=== PATIENT | male | born 1945 | race Caucasian/White ===

== ENCOUNTER 2017-02-17 11:58 | Inpatient (IN) | payer MEDICARE ==
[2017-02-17] VITALS (22 sets, daily range): BP systolic 90–126; BP diastolic 51–78; PULSE 53–119; RESP 20–35; TEMP 97.8–97.9; O2SAT 58–100
[~2017-02-17] VITALS: Ht 162.6 cm; Wt 48.7 kg
[2017-02-17] MEDS ORDERED: SODIUM CHLORIDE 0.9% FLUSH 10 ML FLUSH IVF PRN (12:15)
[2017-02-17] MEDS ORDERED: methylPREDNISolone SOD SUCC 125 MG/2 ML VIAL IV PUSH ONE (12:15)
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
[2017-02-17] MEDS ORDERED: SYMB160A INH (12:34)
[2017-02-17 12:41] LABS: BLOOD GAS VENOUS BASE EXCESS 9.6 mmol/L (-2-2); BLOOD GAS VENOUS HCO3 37 mmol/L (22-26); BLOOD GAS VENOUS O2 CONTENT 12.9 Vol % (9.0-17.0); BLOOD GAS VENOUS O2 HGB SAT 64 % (70-76); BLOOD GAS VENOUS PCO2 93 mmHg (44-48); BLOOD GAS VENOUS PO2 46 mmHg (35-40); BLOOD GAS VENOUS pH 7.23 (7.360-7.400); TEMP CORR TO 98.6
[2017-02-17 12:42] LABS: CRITICAL VALUE YES; DRAW SITE LINE; FIO2 100 %; LITER FLOW 15 L/M; OXYGEN DEVICE NRB MASK; STAT YES
[2017-02-17 12:48] LABS: AUTOMATED NEUTROPHIL # 6.7 TH/MM3 (1.8-7.7); CHLORIDE 99 MEQ/L (98-107); EOSINOPHIL % 0.1 % (0.0-4.0); HEMO FLAGS DIFF FINAL; LYMPH % 6.1 % (9.0-44.0); LYMPHOCYTE # 0.6 TH/MM3 (1.0-4.8); MEAN CELL VOLUME 90.6 FL (80.0-100.0); MEAN CORPUSCULAR HEMOGLOBIN 29.8 PG (27.0-34.0); MEAN CORPUSCULAR HGB CONC 32.9 % (32.0-36.0); MONO % 19.9 % (0.0-8.0); NEUT % 73.9 % (16.0-70.0); PLATELET COUNT 318 TH/MM3 (150-450); POTASSIUM 4.1 MEQ/L (3.5-5.1); RED BLOOD COUNT 4.63 MIL/MM3 (4.50-5.90); RED CELL DISTRIBUTION WIDTH 13.4 % (11.6-17.2); SODIUM (NA) 142 MEQ/L (136-145); WHITE BLOOD COUNT 9.1 TH/MM3 (4.0-11.0)
[2017-02-17 12:52] LABS: ANION GAP 6 MEQ/L (5-15); BICARBONATE 37.2 MEQ/L (21.0-32.0); BLOOD UREA NITROGEN 29 MG/DL (7-18); MAGNESIUM 2.1 MG/DL (1.5-2.5)
[2017-02-17 12:53] LABS: APTT (PATIENT) 28.1 SEC (24.3-30.1); PROTHROMBIN TIME - PATIENT 11.4 SEC (9.8-11.6)
[2017-02-17 12:55] LABS: ALT (GPT) 45 U/L (12-78); AST (GOT) 36 U/L (15-37)
[2017-02-17 12:56] LABS: GLOMERULAR FILTRATION RATE 60 ML/MIN (>89)
[2017-02-17 12:57] LABS: TOTAL BILIRUBIN ADULT 0.4 MG/DL (0.2-1.0)
[2017-02-17 12:58] LABS: ALKALINE PHOSPHATASE 79 U/L (45-117)
--- NOTE | 2017-02-17 13:08 | RADRPT ---
EXAM DATE/TIME: 02/17/2017 12:34 [facility] COMPARISON: No previous studies available for comparison. INDICATIONS : Short of Breath MEDICAL HISTORY : Chronic obstructive pulmonary disease. SURGICAL HISTORY : None. ENCOUNTER: Initial ACUITY: 4 - 6 days PAIN SCORE: 0/10 LOCATION: Bilateral chest FINDINGS: Hyperexpanded lungs with diffuse interstitial prominence. No significant abnormal focal pleural or br ain opacities. Cardiomediastinal contours are within normal limits. Bony thorax is intact. CONCLUSION: 1. Changes of obstructive pulmonary disease. 2. No acute abnormality. Harsha Weston MD on February 17, 2017 at 13:06 Board Certified Radiologist. This report was verified electronically.
[2017-02-17 13:31] LABS: CREATINE KINASE 60 U/L (39-308)
[2017-02-17] MEDS ORDERED: IOHEXOL 350 MG/ML 10 ML VIAL (for RAD DIAG) IVCONTRAST ONE (14:27)
--- NOTE | 2017-02-17 14:47 | RADRPT ---
EXAM DATE/TIME: 02/17/2017 14:17 [facility] COMPARISON: No previous studies available for comparison. INDICATIONS : Short of breath. IV CONTRAST: 65 cc Omnipaque 350 (iohexol) IV RADIATION DOSE: 6.58 CTDIvol (mGy) MEDICAL HISTORY : Chronic obstructive pulmonary disease. SURGICAL HISTORY : Cholecystectomy. ENCOUNTER: Initial ACUITY: 4 - 6 days PAIN SCALE: 0/10 LOCATION: chest TECHNIQUE: Volumetric scanning of the chest was performed using a pulmonary embolism protocol MIP images were re constructed. Using automated exposure control and adjustment of the mA and/or kV according to patien t size, radiation dose was kept as low as reasonably achievable to obtain optimal diagnostic quality images. DICOM format image data is available electronically for review and comparison. Follow-up recommendations for detected pulmonary nodules are based at a minimum on nodule size and pa tient risk factors according to Fleischner Society Guidelines. FINDINGS: The examination is of good diagnostic quality. No pulmonary embolus is identified. 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 The arches at the upper limits of normal in size. The descending thoracic aorta is nor mal in caliber. There is no significant hilar, mediastinal or axillary adenopathy seen. Imaging through the pulmonary parenchyma demonstrates advanced COPD changes. There are multiple infla mmatory-appearing punctate nodules seen. There is bronchiectasis. Findings would be most consistent w ith mucous plugging and end airway disease. The examination also demonstrates a 6 mm solid nodule in the anterior aspect of the right upper lobe. Followup CT imaging in 6 months to document stability is warranted. There is biapical pleural thickening. There are degenerative changes throughout the thoracic spine. CONCLUSION: 1. Advanced COPD changes with bronchiectasis and numerous inflammatory-appearing punctate nodules. Fi ndings are most consistent with mucous plugging and end airway disease. 2. No pulmonary embolus is identified. Bethel Leon MD on February 17, 2017 at 14:42 Board Certified Radiologist. This report was verified electronically.
[2017-02-17] MEDS ORDERED: AZITHROMYCIN INJ 500 MG in SODIUM CHLOR 0.9% 250 ML INJ 250 ML IV ONE (15:00)
[2017-02-17] MEDS ORDERED: cefTRIAXone INJ 1,000 MG in SODIUM CHLORIDE 0.9% INJ 100 ML IV ONE (15:00)
[2017-02-17] MEDS ORDERED: MISCELLANEOUS NURSING INFORMATION XX SCH (16:00)
[2017-02-17] MEDS ORDERED: SODIUM CHLORIDE 0.9% FLUSH 10 ML FLUSH IV FLUSH PRN (16:00)
[2017-02-17] MEDS ORDERED: RESP: ALBUTEROL 2.5 MG/IPRATROPIUM 0.5 MG NEB (PRN) INH (16:00)
[2017-02-17] MEDS ORDERED: CHLORHEXIDINE GLUCONATE 2 % 1 PACK (2 CLOTHS) TOP PRN (16:00)
[2017-02-17] MEDS ORDERED: ACETAMINOPHEN 325 MG TAB PO PRN (16:00)
[2017-02-17] MEDS: SODIUM CHLOR 0.9% 1000 ML INJ 1,000 ML IV SCH ×2 (16:15→18:20)
[2017-02-17] MEDS: RESP: ALBUTEROL 2.5 MG/IPRATROPIUM 0.5 MG NEB (SCH) NEB ×3 (16:41→23:52)
--- NOTE | 2017-02-17 17:11 | HHI.HP ---
HPI Service Critical Care Medicine Primary Care Physician Jamaica Nur MD Admission Diagnosis Hypoxic/Hypercapneic respiratory failure. COPD exacerbation. Diagnosis: Chief Complaint: Shortness of breath Travel History International Travel<30 Days: No Contact w/Intl Traveler <30 Da: No Traveled to Known Affected Are: No Sepsis Criteria SIRS Criteria (2 or more): Heart rate over 90, RR > 20 or PaCO2 < 32 Sepsis Criteria (SIRS+source): Infect source susp/known History of Present Illness History of Present Illness 71-year-old male with a medical history seen him for COPD however has not seen his primary care provider for years. He occasionally uses an inhaler. Patient has reportedly been having progressive shortness of breath for the past few weeks along with cough and congestion. He presented to the [facility] ER and [place] today with worsening shortness of breath and was noted to be hypoxic with O2 sat in the 50s. He was initiated on BiPAP after ABG revealed PCO2 in the 90s and given steroids and antibiotics. A CT chest was negative for PE however revealed changes consistent with advanced COPD and some mucus plugging in his airways. His chest x-ray showed hyperinflated lung hardy. Patient was accepted for admission by critical care medicine service. He denies any chest pain or abdominal pain. Denies any fevers, nausea, vomiting. History PFSH Past Medical History Narrative Medical COPD Past Surgical History Narrative Surgical Cholecystectomy. Family History Family History: Negative Social History Alcohol Use: Yes Tobacco Use: Yes Substance Use: No Allergies-Medications Allergies-Medications (Allergen,Severity, Reaction): Coded Allergies: No Known Allergies (Unverified , 02/17/17) Reported Meds & Prescriptions Reported Meds & Active Scripts Active Reported Symbicort Inh (Budesonide/Formoterol Fumarate) 160-4.5 Mcg/Act Aero 2 Puff INH Q12HR ROS Review of Systems Except as stated in HPI: all other systems reviewed are Neg Physical Exam Vital Signs Vital Signs Date Time Temp Pulse Resp B/P (MAP) Pulse Ox O2 Delivery O2 Flow Rate FiO2 02/17/17 13:50 117 20 109/58 (75) 97 BiPAP 40 02/17/17 12:50 99 50 02/17/17 12:50 99 BiPAP 40 02/17/17 12:46 119 24 100 Non-Rebreather 15.00 02/17/17 12:43 24 100 Non-Rebreather 15.00 02/17/17 12:43 100 Non-Rebreather 15.00 02/17/17 12:41 97.9 119 24 109/58 (75) 58 Physical Exam Narrative GENERAL: Elderly thin and frail male laying in bed appearing tachypnea And dyspneic. SKIN: Focused skin assessment warm/dry. HEAD: Atraumatic. Normocephalic. EYES: Pupils equal and round. No scleral icterus. No injection or drainage. ENT: No nasal bleeding or discharge. Mucous membranes pink and moist. NECK: Trachea midline. No JVD. CARDIOVASCULAR: Regular rhythm with tachycardia.. No murmur appreciated. 2+ but equal pulses in all 4 extremities. RESPIRATORY: Good air entry bilaterally scattered rhonchi and crackles, minimal wheezing. Tachypneic, using accessory muscles of respiration.(Just arrived from ER on nasal cannula-to be initiated on BiPAP) GASTROINTESTINAL: Abdomen soft, non-tender, nondistended. Hepatic and splenic margins not palpable. MUSCULOSKELETAL: No obvious deformities. No clubbing. No cyanosis. No edema. NEUROLOGICAL: Awake and alert. No obvious cranial nerve deficits. Motor grossly within normal limits. Normal speech. PSYCHIATRIC: Appropriate mood and affect; insight and judgment normal. Laboratory Laboratory Tests Test 02/17/17 12:29 02/17/17 12:30 02/17/17 16:19 Blood Gas Puncture Site LINE Blood Gas Patient Temperature 98.6 Venous Blood pH 7.23 Venous Blood Partial Pressure CO2 93 Venous Blood Partial Pressure O2 46 Venous Blood HCO3 37 Venous Blood Oxygen Saturation 64 Venous Blood Oxygen Content 12.9 Venous Blood Base Excess 9.6 Oxygen Delivery Device NRB MASK Blood Gas Liter Flow 15 Blood Gas Inspired Oxygen 100 White Blood Count 9.1 Red Blood Count 4.63 Hemoglobin 13.8 Hematocrit 42.0 Mean Corpuscular Volume 90.6 Mean Corpuscular Hemoglobin 29.8 Mean Corpuscular Hemoglobin Concent 32.9 Red Cell Distribution Width 13.4 Platelet Count 318 Mean Platelet Volume 7.9 Neutrophils (%) (Auto) 73.9 Lymphocytes (%) (Auto) 6.1 Monocytes (%) (Auto) 19.9 Eosinophils (%) (Auto) 0.1 Basophils (%) (Auto) 0.0 Neutrophils # (Auto) 6.7 Lymphocytes # (Auto) 0.6 Monocytes # (Auto) 1.8 Eosinophils # (Auto) 0.0 Basophils # (Auto) 0.0 CBC Comment DIFF FINAL Differential Comment Prothrombin Time 11.4 Prothromb Time International Ratio 1.0 Activated Partial Thromboplast Time 28.1 Blood Urea Nitrogen 29 Creatinine 1.20 Random Glucose 173 Total Protein 7.9 Albumin 2.9 Calcium Level 9.5 Magnesium Level 2.1 Alkaline Phosphatase 79 Aspartate Amino Transf (AST/SGOT) 36 Alanine Aminotransferase (ALT/SGPT) 45 Total Bilirubin 0.4 Sodium Level 142 Potassium Level 4.1 Chloride Level 99 Carbon Dioxide Level 37.2 Anion Gap 6 Estimat Glomerular Filtration Rate 60 Total Creatine Kinase 60 Troponin I 0.02 Date/Time Source Procedure Growth Status 02/17/17 15:22 Blood Peripheral Aerobic Blood Culture Pending Received 02/17/17 15:22 Blood Peripheral Anaerobic Blood Culture Pending Received 02/17/17 16:19 Nasal Washing Influenza Types A,B Antigen (COREEN) - Final NEGATIVE FOR FLU A AND B ANTIGEN.... Complete Result Diagram: 02/17/17 1230 02/17/17 1230 Imaging Last Impressions Chest X-Ray 02/17/17 1209 Signed Impressions: Service Date/Time: Friday, February 17, 2017 12:34 - CONCLUSION: 1. Changes of obstructive pulmonary disease. 2. No acute abnormality. Harsha Weston MD CT Angiography 02/17/17 0000 Signed Impressions: Service Date/Time: Friday, February 17, 2017 14:17 - CONCLUSION: 1. Advanced COPD changes with bronchiectasis and numerous inflammatory-appearing punctate nodules. Findings are most consistent with mucous plugging and end airway disease. 2. No pulmonary embolus is identified. Bethel Leon MD Septic Shock Reassessment Heart: Regular rate and rhythm Lungs: Crackles Skin: Warm Peripheral Pulses: Bounding Right Radial Capillary Refill: Brisk Caprini VTE Risk Assessment Caprini VTE Risk Assessment: Mod/High Risk (score >= 2) Caprini Risk Assessment Model Point Value = 1 Point Value = 2 Point Value = 3 Point Value = 5 Age 41-60 Minor surgery BMI > 25 kg/m2 Swollen legs Varicose veins or History of unexplained or recurrent spontaneous Oral contraceptives or hormone replacement Sepsis (< 1 month) Serious lung disease, including pneumonia (< 1 month) Abnormal pulmonary function Acute myocardial infarction Congestive heart failure (< 1 month) History of inflammatory bowel disease Medical patient at bed rest Age 61-74 Arthroscopic surgery Major open surgery (> 45 min) Laparoscopic surgery (> 45 min) Malignancy Confined to bed (> 72 hours) Immobilizing plaster cast Central venous access Age >= 75 History of VTE Family history of VTE Factor V Leiden Prothrombin [id number] Lupus anticoagulant Anticardiolipin antibodies Elevated serum homocysteine Heparin-induced thrombocytopenia Other congenital or acquired thrombophilia Stroke (< 1 month) Elective arthroplasty Hip, pelvis, or leg fracture Acute spinal cord injury (< 1 month) Prophylaxis Regimen Total Risk Factor Score Risk Level Prophylaxis Regimen 0-1 Low Early ambulation 2 Moderate Order ONE of the following: *Sequential Compression Device (SCD) *Heparin 5000 units SQ BID 3-4 Higher Order ONE of the following medications: *Heparin 5000 units SQ TID *Enoxaparin/Lovenox 40 mg SQ daily (WT < 150 kg, CrCl > 30 mL/min) *Enoxaparin/Lovenox 30 mg SQ daily (WT < 150 kg, CrCl > 10-29 mL/min) *Enoxaparin/Lovenox 30 mg SQ BID (WT < 150 kg, CrCl > 30 mL/min) AND/OR *Sequential Compression Device (SCD) 5 or more Highest Order ONE of the following medications: *Heparin 5000 units SQ TID (Preferred with Epidurals) *Enoxaparin/Lovenox 40 mg SQ daily (WT < 150 kg, CrCl > 30 mL/min) *Enoxaparin/Lovenox 30 mg SQ daily (WT < 150 kg, CrCl > 10-29 mL/min) *Enoxaparin/Lovenox 30 mg SQ BID (WT < 150 kg, CrCl > 30 mL/min) AND *Sequential Compression Device (SCD) Assessment and Plan Assessment and Plan 71-year-old male with: Acute respirator failure requiring BiPAP COPD exacerbation Possible sepsis Acute on chronic respiratory acidosis Plan: Neuro: Follow neuro status. Precedex GTT to control anxiety while on BiPAP. Cardiovascular: IV hydration, watch for hypotension. Pulmonary: Trial of BiPAP with full facemask. Follow repeat ABGs in view of elevated PCO2. If respiratory status declines CO2 climbs further despite BiPAP , may require endotracheal intubation and mechanical ventilation. Bronchodilators, Solu-Medrol. Mucomyst nebs, Acapella. GI/liver: Nothing by mouth till respiratory status improves while on BiPAP. Renal/: IV hydration, strict intake output, monitor and replete electrolytes, follow BUN/creatinine. ID: Received Rocephin and Zithromax in the ER. Follow-up cultures. We'll initiate empiric antibiotic coverage with IV Zosyn/Zithromax. Check urine for strep pneumo and Legionella antigen. Check nasal washings for influenza A and B. Heme: Follow CBC Endocrine: SSI for glycemic control as needed. Prophylaxis: Pepcid/SCDs/Lovenox Condition critical: Time spent on critical care excluding procedures 60 minutes: Denis Patel MD Feb 17, 2017 17:11
[2017-02-17] MEDS ORDERED: DEXMEDETOMIDINE INJ 200 MCG in SODIUM CHLORIDE 0.9% INJ 50 ML IV PRN (17:15)
[2017-02-17] MEDS: ENOXAPARIN SODIUM 40 MG/0.4 ML SYRINGE SQ SCH (18:27)
[2017-02-17] MEDS: PIPERACIL-TAZO 3.375 GM PREMIX 50 ML IV SCH ×2 (18:28→23:12)
[2017-02-17] MEDS: INSULIN ASPART SUPPLEMENTAL SCALE SQ SCH (19:00)
[2017-02-17 19:40] LABS: BLOOD GAS BASE EXCESS 10.4 mmol/L (-2-2); BLOOD GAS CARBOXYHEMOGLOBIN 1.2 % (0-4); BLOOD GAS HCO3 36 mmol/L (22-26); BLOOD GAS METHEMOGLOBIN 1.3 % (0-2); BLOOD GAS O2 HGB SATURATION 89 % (90-100); BLOOD GAS OXYGEN CONTENT 15.9 Vol % (12.0-20.0); BLOOD GAS PCO2 69 mmHg (38-42); BLOOD GAS PO2 68 mmHg (61-120); BLOOD GAS TOTAL HGB 12.7 G/DL (12.0-16.0)
[2017-02-17 19:41] LABS: CRITICAL VALUE YES; DRAW SITE RT RADIAL; FIO2 30 %; NUMBER OF ARTERIAL PUNCTURES 1; OXYGEN DEVICE BIPAP; STAT NO; ULNAR PULSE PRESENT; VENT SETTINGS 12IPAP/5EPAP
[2017-02-17] MEDS: SODIUM CHLORIDE 0.9% FLUSH 10 ML FLUSH IV FLUSH SCH (19:44)
[2017-02-17] MEDS: FAMOTIDINE 20 MG/2 ML VIAL IV PUSH SCH (19:58)
[2017-02-17] MEDS: RESP: ACETYLCYSTEINE 10% 30 ML NEB NEB SCH ×2 (20:00→23:52)
[2017-02-17] MEDS: methylPREDNISolone SOD SUCC 125 MG/2 ML VIAL IV SCH (22:42)
[2017-02-17] MEDS: CHLORHEXIDINE 0.12% (ORAL KIT) 15 ML CUP MT SCH (22:44)
[2017-02-17 22:48] LABS: CREATINE KINASE 54 U/L (39-308)
[2017-02-18] VITALS (30 sets, daily range): BP systolic 88–125; BP diastolic 40–61; PULSE 55–100; RESP 24–36; TEMP 98.4–98.5; O2SAT 89–96
[2017-02-18] MEDS: CHLORHEXIDINE GLUCONATE 2 % 1 PACK (2 CLOTHS) TOP SCH (04:00)
[2017-02-18] MEDS: RESP: ALBUTEROL 2.5 MG/IPRATROPIUM 0.5 MG NEB (SCH) NEB ×6 (04:31→23:09)
[2017-02-18 04:40] LABS: AUTOMATED NEUTROPHIL # 3.8 TH/MM3 (1.8-7.7); BASOPHIL % 0.3 % (0.0-2.0); HEMATOCRIT 35.8 % (39.0-51.0); LYMPH % 8.4 % (9.0-44.0); LYMPHOCYTE # 0.4 TH/MM3 (1.0-4.8); MEAN CELL VOLUME 91.1 FL (80.0-100.0); MEAN CORPUSCULAR HEMOGLOBIN 29.5 PG (27.0-34.0); MEAN CORPUSCULAR HGB CONC 32.4 % (32.0-36.0); MONO % 7.6 % (0.0-8.0); NEUT % 83.7 % (16.0-70.0); PLATELET COUNT 216 TH/MM3 (150-450); RED BLOOD COUNT 3.93 MIL/MM3 (4.50-5.90); RED CELL DISTRIBUTION WIDTH 13.5 % (11.6-17.2); WHITE BLOOD COUNT 4.5 TH/MM3 (4.0-11.0)
[2017-02-18 04:47] LABS: CHLORIDE 103 MEQ/L (98-107); POTASSIUM 3.8 MEQ/L (3.5-5.1); SODIUM (NA) 142 MEQ/L (136-145)
[2017-02-18 04:48] LABS: HEMO FLAGS AUTO DIFF
[2017-02-18] MEDS: PIPERACIL-TAZO 3.375 GM PREMIX 50 ML IV SCH ×4 (05:11→23:31)
[2017-02-18 05:24] LABS: ALKALINE PHOSPHATASE 64 U/L (45-117); ALT (GPT) 36 U/L (12-78); ANION GAP 5 MEQ/L (5-15); AST (GOT) 22 U/L (15-37); BLOOD UREA NITROGEN 26 MG/DL (7-18); GLOMERULAR FILTRATION RATE 82 ML/MIN (>89); TOTAL BILIRUBIN ADULT 0.3 MG/DL (0.2-1.0)
[2017-02-18] MEDS: INSULIN ASPART SUPPLEMENTAL SCALE SQ SCH ×5 (06:00→23:42)
--- NOTE | 2017-02-18 06:16 | RADRPT ---
EXAM DATE/TIME: 02/18/2017 05:55 [facility] COMPARISON: CHEST SINGLE AP, February 17, 2017, 12:34. CT PULMONARY ANGIOGRAM, February 17, 2017, 14:17. INDICATIONS : Shortness of breath. MEDICAL HISTORY : Chronic obstructive pulmonary disease. SURGICAL HISTORY : None. ENCOUNTER: Subsequent ACUITY: 4 - 6 days PAIN SCORE: 0/10 LOCATION: Bilateral chest FINDINGS: Diffuse asymmetric bilateral reticulonodular parenchymal opacities are grossly unchanged, generally w orse on the right than the left. No evidence of lobar consolidation or pleural effusion. Cardiac cont our is grossly unchanged. CONCLUSION: No significant change Chris Lopez MD on February 18, 2017 at 6:14 Board Certified Radiologist. This report was verified electronically.
[2017-02-18] MEDS: methylPREDNISolone SOD SUCC 125 MG/2 ML VIAL IV SCH ×3 (06:25→22:13)
[2017-02-18] MEDS: RESP: ACETYLCYSTEINE 10% 30 ML NEB NEB SCH ×3 (07:18→23:09)
[2017-02-18 07:23] LABS: SCAN/DIFF AUTO DIFF CONFIRMED
[2017-02-18] MEDS: CHLORHEXIDINE 0.12% (ORAL KIT) 15 ML CUP MT SCH ×2 (08:00→20:00)
[2017-02-18 08:30] LABS: BLOOD GAS BASE EXCESS 7.8 mmol/L (-2-2); BLOOD GAS CARBOXYHEMOGLOBIN 1.1 % (0-4); BLOOD GAS HCO3 33 mmol/L (22-26); BLOOD GAS METHEMOGLOBIN 1.2 % (0-2); BLOOD GAS O2 HGB SATURATION 88 % (90-100); BLOOD GAS PCO2 60 mmHg (38-42); BLOOD GAS PO2 63 mmHg (61-120); BLOOD GAS TOTAL HGB 12.1 G/DL (12.0-16.0)
[2017-02-18 08:31] LABS: CRITICAL VALUE YES; DRAW SITE RT RADIAL; LITER FLOW 1 L/M; NUMBER OF ARTERIAL PUNCTURES 1; OXYGEN DEVICE NASAL CANNULA; STAT NO; ULNAR PULSE PRESENT
[2017-02-18] MEDS: SODIUM CHLORIDE 0.9% FLUSH 10 ML FLUSH IV FLUSH SCH ×2 (09:00→20:41)
--- NOTE | 2017-02-18 09:51 | EKG ---
Date Performed: 02/17/2017 Time Performed: 12:12:22 PTAGE: 71 years EKG: SINUS TACHYCARDIA POSSIBLE RIGHT ATRIAL ENLARGEMENT POSSIBLE LEFT ATRIAL ENLARGEMENT POSSIB LE RIGHT VENTRICULAR CONDUCTION DELAY NONSPECIFIC ST & T-WAVE ABNORMALITY ABNORMAL RHYTHM ECG NO PREVIOUS TRACING DOCTOR: Dane Tobias Interpretating Date/Time 02/18/2017 09:51:24
[2017-02-18] MEDS ORDERED: PNEUMOCOCCAL POLYVALENT INJ 25 MCG/0.5 ML SYR IM ONE (10:00)
[2017-02-18] MEDS ORDERED: INFLUENZA VIRUS VACCINE (QUADRIVALENT) 0.5 ML SYR IM ONE (10:00)
[2017-02-18] MEDS: SODIUM CHLOR 0.9% 1000 ML INJ 1,000 ML IV SCH ×2 (11:44→23:39)
[2017-02-18] MEDS: guaiFENesin E.R. 600 MG TAB PO SCH ×2 (11:45→20:42)
[2017-02-18] MEDS: FAMOTIDINE 20 MG/2 ML VIAL IV PUSH SCH ×2 (11:46→20:42)
--- NOTE | 2017-02-18 12:15 | MB ---
cc: SUKUMAR FARNSWORTH,ESTEFANI Phillip MD DATE OF CONSULTATION: 02/18/2017 REASON FOR CONSULTATION COPD exacerbation. HISTORY OF PRESENT ILLNESS Mr. Main is a 71-year-old white male with a longstanding history of COPD. He has not seen any physician. He uses some inhaler at home. He came to the hospital with at least a one-week history of worsening of his shortness of breath. He had wheezing, congestion and cough with a small amount of sputum production. He did not have any chest pain. No fever or chills. The patient was evaluated in the emergency room. His initial blood gas showed pH 7.34, PCO2 69, CO2 68. He was put on BiPAP with repeat blood gas of pH 7.3, PCO2 60, CO2 63, bicarb 33 on one liter nasal cannula. He feels significantly better, mild shortness of breath, cough and congestion. His CBC showed WBC count 4.5, hemoglobin 11.6, hematocrit 35.8, MCV 91, platelets 216. Sodium 142, potassium 3.8, chloride 103, CO2 34, BUN 26, creatinine 0.91. He had a CTA of the chest done and does not show any pulmonary embolism. It shows advanced bronchiectatic changes with numerous inflammatory-appearing punctate nodules. PAST MEDICAL HISTORY 1. COPD. 2. Cholecystectomy. 3. History of leg surgery with rods and pins. SOCIAL HISTORY A long history of smoking which he quit 4 months ago. He was smoking 1-1/2 packs a day. Drinks socially. 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 FAMILY HISTORY He is . He has four children. REVIEW OF SYSTEMS He has lost some weight. No hemoptysis. No DVT or pulmonary embolism. No seizures or stroke. PHYSICAL EXAMINATION GENERAL: An elderly male mildly short of breath. VITAL SIGNS: Blood pressure 147/50, heart rate 70, respirations 20, temperature 98.5. HEENT: Pupils are equal and reactive. Oral mucosa and nasal mucosa normal. NECK: JVP not raised. CHEST: Hyperresonant chest. Expiratory rhonchi. CV: S1, S2 normal. ABDOMEN: Benign. EXTREMITIES: No edema. IMPRESSION 1. Hypercapnic respiratory failure is improving. 2. COPD exacerbation with bronchiectasis. 3. Chronic-appearing infiltrate in the lung, possibility of MARY. 4. Nicotine use. PLAN I discussed with the patient. Will continue IV Solu-Medrol, aerosol treatments with albuterol and Atrovent. Continue antibiotic. Supplement his oxygen and will evaluate him for the need of home oxygen therapy. Will check a pulmonary function study. Further treatment will depend on the course in the hospital. Thank you, Dr. Estefani Patel, for this consult. Sukumar Farnsworth MD ADA/BT /11:16 AM /11:39 AM
--- NOTE | 2017-02-18 15:01 | HHI.PR ---
Subjective Remarks Patient reports significant improvement today. He is not yet back to baseline but feels he is trending towards baseline. No new complaints. No nausea or vomiting. No chest pain. Objective Vital Signs Date Time Temp Pulse Resp B/P (MAP) Pulse Ox O2 Delivery O2 Flow Rate FiO2 02/18/17 07:18 91 1.00 02/18/17 06:00 70 30 107/50 (69) 93 02/18/17 05:00 68 28 94/40 (58) 94 02/18/17 04:31 95 Nasal Cannula 2.00 02/18/17 04:00 98.5 66 29 114/50 (71) 92 02/18/17 03:30 94 30 02/18/17 03:00 60 24 114/55 (74) 93 02/18/17 02:00 66 27 100/53 (69) 94 02/18/17 01:00 86 33 114/58 (76) 93 02/18/17 00:40 90 30 02/18/17 00:32 82 28 100/55 (70) 91 02/18/17 00:30 80 29 88/47 (61) 92 02/18/17 00:00 98.4 60 26 109/59 (76) 93 02/17/17 23:02 53 02/17/17 23:00 72 29 126/65 (85) 93 02/17/17 22:30 62 28 108/57 (74) 93 02/17/17 22:00 62 29 102/60 (74) 93 02/17/17 21:35 92 30 02/17/17 21:30 62 31 114/60 (78) 94 02/17/17 21:00 62 30 90/51 (64) 94 02/17/17 20:30 72 30 103/52 (69) 95 02/17/17 20:00 76 32 104/58 (73) 92 02/17/17 19:30 92 30 02/17/17 19:30 97.8 74 33 117/59 (78) 92 02/17/17 19:00 80 31 92/51 (65) 89 02/17/17 18:30 84 33 111/60 (77) 93 02/17/17 18:16 96 30 02/17/17 18:13 90 35 116/55 (75) 95 10/9/17 18:00 92 35 94 02/17/17 17:30 96 35 89 02/17/17 17:20 02/17/17 17:18 97.8 115 20 97/78 (84) 100 BiPAP 40 02/17/17 17:17 125/60 (81) I/O 02/17/17 02/17/17 02/17/17 02/18/17 02/18/17 02/18/17 07:00 15:00 23:00 07:00 15:00 23:00 Intake Total 606 ml 950 ml Output Total 325 ml Balance 606 ml 625 ml Intake IV Total 606 ml 950 ml Output Urine Total 325 ml Bladder Scan Volume Amount 422 ml # Voids 2 # Bowel Movements 0 Result Diagram: 02/18/1742102/18/17421 Objective Remarks GENERAL: NAD, A&Ox3 HEAD: Normocephalic. NECK: Supple, trachea midline. No lymphadenopathy. EYES: No scleral icterus. No injection or drainage. CARDIOVASCULAR: Regular rate and rhythm without murmurs, gallops, or rubs. RESPIRATORY: Breath sounds equal bilaterally. Slight increase work of breathing while talking, no wheezing. GASTROINTESTINAL: Abdomen soft, non-tender, nondistended. MUSCULOSKELETAL: No cyanosis, or edema. SKIN: Warm and dry. NEURO: No focal neurological deficitis. A/P Problem List: (1) Respiratory failure with hypoxia and hypercapnia ICD Code: J96.91 - Respiratory failure, unspecified with hypoxia; J96.92 - Respiratory failure, unspecified with hypercapnia Status: Acute Assessment and Plan Assessment and plan 71-year-old male admitted secondary to COPD exacerbation with hypoxia and respiratory failure. Improved today compared to yesterday. Not yet to baseline. Acute respiratory failure COPD exacerbation Acute respiratory acidosis BiPAP provided yesterday and patient has weaned off BiPAP this morning Stable for transfer out of ICU Continue antibiotics Continue oxygen supplementation Pulmonology following Continue Solu-Medrol Continue bronchodilators Continue Acapella Continue Mucomyst Continue Zosyn and Zithromax DVT prophylaxis Lovenox SCDs Problem Qualifiers (1) Respiratory failure with hypoxia and hypercapnia: Qualified Codes: J96.01 - Acute respiratory failure with hypoxia; J96.02 - Acute respiratory failure with hypercapnia Bethel Apodaca MD Feb 18, 2017 15:01
[2017-02-18] MEDS: ENOXAPARIN SODIUM 40 MG/0.4 ML SYRINGE SQ SCH (16:56)
[2017-02-18] MEDS: AZITHROMYCIN INJ 500 MG in SODIUM CHLOR 0.9% 250 ML INJ 250 ML IV SCH (16:56)
[2017-02-19] VITALS (24 sets, daily range): BP systolic 125–168; BP diastolic 61–72; PULSE 64–94; RESP 27–33; TEMP 98–99.2; O2SAT 90–97
[2017-02-19] MEDS: RESP: ALBUTEROL 2.5 MG/IPRATROPIUM 0.5 MG NEB (SCH) NEB ×6 (03:29→23:04)
[2017-02-19] MEDS: CHLORHEXIDINE GLUCONATE 2 % 1 PACK (2 CLOTHS) TOP SCH ×2 (04:00→23:47)
[2017-02-19] MEDS: PIPERACIL-TAZO 3.375 GM PREMIX 50 ML IV SCH ×4 (04:30→22:02)
[2017-02-19] MEDS: INSULIN ASPART SUPPLEMENTAL SCALE SQ SCH ×4 (05:13→23:53)
[2017-02-19] MEDS: methylPREDNISolone SOD SUCC 125 MG/2 ML VIAL IV SCH ×3 (05:13→21:46)
[2017-02-19] MEDS ORDERED: CALCIUM CARBONATE 500 MG CHEWABLE TAB CHEW PRN (07:00)
[2017-02-19] MEDS ORDERED: MAGNESIUM HYDROXIDE SUSP 30 ML CUP PO PRN (07:00)
[2017-02-19] MEDS ORDERED: ONDANSETRON HCL 4 MG/2 ML VIAL IV PUSH PRN (07:00)
[2017-02-19] MEDS ORDERED: DOCUSATE SODIUM 100 MG CAP PO PRN (07:00)
[2017-02-19] MEDS: RESP: ACETYLCYSTEINE 10% 30 ML NEB NEB SCH ×3 (07:47→23:04)
[2017-02-19] MEDS: CHLORHEXIDINE 0.12% (ORAL KIT) 15 ML CUP MT SCH ×2 (08:00→20:00)
[2017-02-19] MEDS: SODIUM CHLORIDE 0.9% FLUSH 10 ML FLUSH IV FLUSH SCH ×2 (08:47→21:45)
[2017-02-19] MEDS: guaiFENesin E.R. 600 MG TAB PO SCH ×2 (08:47→21:46)
[2017-02-19] MEDS: FAMOTIDINE 20 MG/2 ML VIAL IV PUSH SCH ×2 (08:47→21:46)
--- NOTE | 2017-02-19 13:39 | HHI.PR ---
Subjective Remarks Improving today. Able to ambulate with PT. Oxygen dependence remains today, he is not on oxygen at home. Objective Vital Signs Date Time Temp Pulse Resp B/P (MAP) Pulse Ox O2 Delivery O2 Flow Rate FiO2 02/19/17 09:30 2.00 02/19/17 07:49 95 Nasal Cannula 2.00 02/19/17 05:27 98.8 02/19/17 04:00 86 32 94 02/19/17 03:00 72 30 139/66 (90) 95 02/19/17 02:00 76 31 94 02/19/17 00:00 99.0 02/18/17 21:00 88 31 94 02/18/17 21:00 98.4 02/18/17 20:56 93 Nasal Cannula 1.00 02/18/17 20:00 92 02/18/17 19:46 90 Nasal Cannula 1.00 02/18/17 19:45 86 Room Air 02/18/17 19:31 92 Room Air 02/18/17 19:30 92 Nasal Cannula 02/18/17 19:12 95 Nasal Cannula 1.00 02/18/17 19:00 92 32 125/61 (82) 95 02/18/17 17:00 94 29 93 02/18/17 16:00 90 02/18/17 16:00 100 36 94 02/18/17 15:00 82 29 94 02/18/17 14:00 86 30 94 I/O 02/18/17 02/18/17 02/18/17 02/19/17 02/19/17 02/19/17 06:59 14:59 22:59 06:59 14:59 22:59 Intake Total 950 ml 1046 ml 1181 ml Output Total 325 ml 400 ml Balance 625 ml 1046 ml 781 ml Intake IV Total 950 ml 1046 ml 1181 ml Output Urine Total 325 ml 400 ml Bladder Scan Volume Amount 422 ml # Voids 2 # Bowel Movements 0 Result Diagram: 02/18/1742102/18/17421 Objective Remarks GENERAL: NAD, A&Ox3 HEAD: Normocephalic. NECK: Supple, trachea midline. No lymphadenopathy. EYES: No scleral icterus. No injection or drainage. CARDIOVASCULAR: Regular rate and rhythm without murmurs, gallops, or rubs. RESPIRATORY: Breath sounds equal bilaterally. Slight increase work of breathing while talking, no wheezing. GASTROINTESTINAL: Abdomen soft, non-tender, nondistended. MUSCULOSKELETAL: No cyanosis, or edema. SKIN: Warm and dry. NEURO: No focal neurological deficitis. A/P Problem List: (1) Respiratory failure with hypoxia and hypercapnia ICD Code: J96.91 - Respiratory failure, unspecified with hypoxia; J96.92 - Respiratory failure, unspecified with hypercapnia Status: Acute Assessment and Plan Assessment and plan 71-year-old male admitted secondary to COPD exacerbation with hypoxia and respiratory failure. No new complaints today. Improved today compared to yesterday. Not yet to baseline. Follow clinically for improvements in functional status. Plan for discharge to home when functional status attained; should be approximately 1-2 days. Acute respiratory failure COPD exacerbation Acute respiratory acidosis BiPAP provided yesterday and patient has weaned off BiPAP this morning Stable for transfer out of ICU Continue antibiotics Continue oxygen supplementation Pulmonology following Continue Solu-Medrol Continue bronchodilators Continue Acapella Continue Mucomyst Continue Zosyn and Zithromax DVT prophylaxis Lovenox SCDs Problem Qualifiers (1) Respiratory failure with hypoxia and hypercapnia: Qualified Codes: J96.01 - Acute respiratory failure with hypoxia; J96.02 - Acute respiratory failure with hypercapnia Bethel Apodaca MD Feb 19, 2017 13:39
[2017-02-19] MEDS: ENOXAPARIN SODIUM 40 MG/0.4 ML SYRINGE SQ SCH (16:35)
[2017-02-19] MEDS: AZITHROMYCIN INJ 500 MG in SODIUM CHLOR 0.9% 250 ML INJ 250 ML IV SCH (16:36)
[2017-02-19] MEDS: SODIUM CHLOR 0.9% 1000 ML INJ 1,000 ML IV SCH (21:47)
[2017-02-20] VITALS (13 sets, daily range): BP systolic 145–165; BP diastolic 66–80; PULSE 75–92; RESP 25–34; TEMP 97.8–98.3; O2SAT 91–100
[2017-02-20] MEDS: RESP: ALBUTEROL 2.5 MG/IPRATROPIUM 0.5 MG NEB (SCH) NEB ×4 (03:54→15:45)
[2017-02-20] MEDS: INSULIN ASPART SUPPLEMENTAL SCALE SQ SCH ×3 (06:00→18:00)
[2017-02-20] MEDS: PIPERACIL-TAZO 3.375 GM PREMIX 50 ML IV SCH ×3 (06:16→17:00)
[2017-02-20] MEDS: methylPREDNISolone SOD SUCC 125 MG/2 ML VIAL IV SCH ×2 (06:17→16:39)
[2017-02-20] MEDS: RESP: ACETYLCYSTEINE 10% 30 ML NEB NEB SCH ×2 (07:20→15:45)
[2017-02-20] MEDS: CHLORHEXIDINE 0.12% (ORAL KIT) 15 ML CUP MT SCH (08:00)
[2017-02-20] MEDS: guaiFENesin E.R. 600 MG TAB PO SCH (08:23)
[2017-02-20] MEDS: SODIUM CHLORIDE 0.9% FLUSH 10 ML FLUSH IV FLUSH SCH (08:24)
[2017-02-20] MEDS: FAMOTIDINE 20 MG/2 ML VIAL IV PUSH SCH (08:24)
[2017-02-20] MEDS: SODIUM CHLOR 0.9% 1000 ML INJ 1,000 ML IV SCH (10:33)
[2017-02-20] MEDS ORDERED: IPRASOL INH (14:02)
[2017-02-20] MEDS ORDERED: PRED10PA PO (14:02)
[2017-02-20] MEDS ORDERED: AUGM875T3 PO (14:02)
[2017-02-20] MEDS ORDERED: ALBU.5I NEB (14:02)
[2017-02-20] MEDS ORDERED: AZIT250T3 PO (14:02)
[2017-02-20] MEDS ORDERED: LACTTAB8 PO (14:02)
[2017-02-20] MEDS ORDERED: NEBULIZER1 MI1 (14:04)
[2017-02-20] MEDS ORDERED: OXYGENDME NAS.CANULA (14:04)
--- NOTE | 2017-02-20 14:06 | HHI.DS ---
Discharge Summary Admission Date Feb 17, 2017 at 15:26 Discharge Date: Feb 20, 2017 Admitting Diagnosis Hypoxic/Hypercapneic respiratory failure. COPD exacerbation. (1) Respiratory failure with hypoxia and hypercapnia ICD Code: J96.91 - Respiratory failure, unspecified with hypoxia; J96.92 - Respiratory failure, unspecified with hypercapnia Status: Acute Procedures none Brief History - From Admission History of Present Illness 71-year-old male with a medical history seen him for COPD however has not seen his primary care provider for years. He occasionally uses an inhaler. Patient has reportedly been having progressive shortness of breath for the past few weeks along with cough and congestion. He presented to the [facility] and [place] today with worsening shortness of breath and was noted to be hypoxic with O2 sat in the 50s. He was initiated on BiPAP after ABG revealed PCO2 in the 90s and given steroids and antibiotics. A CT chest was negative for PE however revealed changes consistent with advanced COPD and some mucus plugging in his airways. His chest x-ray showed hyperinflated lung hardy. Patient was accepted for admission by critical care medicine service. He denies any chest pain or abdominal pain. Denies any fevers, nausea, vomiting. History PFSH Past Medical History Narrative Medical COPD Past Surgical History Narrative Surgical Cholecystectomy. Family History Family History: Negative Social History Alcohol Use: Yes Tobacco Use: Yes Substance Use: No Allergies-Medications Allergies-Medications (Allergen,Severity, Reaction): Coded Allergies: No Known Allergies (Unverified , 02/17/17) Reported Meds & Prescriptions Reported Meds & Active Scripts Active Reported Symbicort Inh (Budesonide/Formoterol Fumarate) 160-4.5 Mcg/Act Aero 2 Puff INH Q12HR ROS Review of Systems Except as stated in HPI: all other systems reviewed are Neg CBC/BMP: 02/18/17 0422 02/18/17 042 Significant Findings Laboratory Tests Test 02/17/17 16:19 02/17/17 16:59 02/17/17 19:30 02/17/17 21:53 Blood Gas HCO3 36 mmol/L (22-26) Blood Gas Base Excess 10.4 mmol/L (-2-2) Blood Gas Oxygen Saturation 89 % (90-100) Arterial Blood pH 7.34 (7.380-7.420) Arterial Blood Partial Pressure CO2 69 mmHg (38-42) Troponin I LESS THAN 0.02 NG/ML Test 02/18/17 04:22 02/18/17 08:25 Red Blood Count 3.93 MIL/MM3 (4.50-5.90) Hemoglobin 11.6 GM/DL (13.0-17.0) Hematocrit 35.8 % (39.0-51.0) Neutrophils (%) (Auto) 83.7 % (16.0-70.0) Lymphocytes (%) (Auto) 8.4 % (9.0-44.0) Lymphocytes # (Auto) 0.4 TH/MM3 (1.0-4.8) Blood Urea Nitrogen 26 MG/DL (7-18) Random Glucose 150 MG/DL (74-106) Albumin 2.3 GM/DL (3.4-5.0) Carbon Dioxide Level 34.0 MEQ/L (21.0-32.0) Estimat Glomerular Filtration Rate 82 ML/MIN (>89) Blood Gas HCO3 33 mmol/L (22-26) Blood Gas Base Excess 7.8 mmol/L (-2-2) Blood Gas Oxygen Saturation 88 % (90-100) Arterial Blood pH 7.36 (7.380-7.420) Arterial Blood Partial Pressure CO2 60 mmHg (38-42) Hospital Course Mr. Main is a 71-year-old male. He was admitted secondary to COPD exacerbation which is suspicious to have been related to early pneumonia. He does not require oxygen at baseline but presently remains oxygen dependent. He has been hospitalized in the past for COPD exacerbation, but this episode is worse than any previous episode he can recall. He has been improving through time. He is not ambulatory, but again requires oxygen to maintain his saturations. Medically he is stable for discharge to home today with continuation of treatments. He will need to discharge with oxygen. Pt Condition on Discharge: Stable Discharge Disposition: Disch w/ Home Health Serv Discharge Time: > 30 minutes Discharge Instructions DIET: Follow Instructions for: As Tolerated, No Restrictions Activities you can perform: Regular-No Restrictions Follow up Referrals: PCP Follow-up - 1 Week New Medications: Albuterol Neb (Albuterol Neb) 2.5 Mg/0.5 Ml Neb 2.5 MG NEB Q4HR NEB PRN for COPD, #60 EA Note: The Albuterol Sulfate Inhalation Solution is concentrated and must be diluted. Read complete instructions carefully before using. Amoxicillin-Clavulanate (Augmentin) 875-125 Mg Tab 1 TAB PO BID for Infection, #12 TAB 0 Refills Azithromycin (Azithromycin) 250 Mg Tab 250 MG PO DAILY for Infection, #6 TAB 0 Refills Ipratropium-Albuterol Neb (Duoneb) 0.5-2.5 Mg/3 Ml Neb 1 NEBULE INH BID for Breathing Treatment, #60 NEBULE 0 Refills Lactobacillus Acidophilus (Lactobacillus Acidophilus) 1 Billion Cell Tab 1 TAB PO TIDAC for Nutritional Supplement, #30 TAB 0 Refills Nebulizer (Nebulizer) 1 Mis Mis EA .ROUTE DIRECTED for Breathing Treatment, #1 0 Refills Oxygen (O2) (Oxygen (O2)) Device LITER LIDIA.CANULA CONTINUOUS for Prevent Hypoxemia, #2 Oxygen Concentrator Portable Gaseous 2 L/min via Nasal Canula Continuous For 99 months Prednisone (21) 10 mg tab Dose Pack (Prednisone (21) 10 mg tab Dose Pack) 10 Mg Pack 10 MG PO DIRECTED for Inflammation, #1 DSPK 0 Refills Continued Medications: Budesonide-Formoterol Inh (Symbicort Inh) 160-4.5 Mcg/Act Aero 2 PUFF INH Q12HR, #1 INHALER 0 Refills Bethel Apodaca MD Feb 20, 2017 14:06
--- NOTE | 2017-02-20 14:38 | HHI.DCPOC ---
Discharge Care Plan Diagnosis: (1) Respiratory failure with hypoxia and hypercapnia Goals to Promote Your Health * To prevent worsening of your condition and complications * To maintain your health at the optimal level Directions to Meet Your Goals Take your medications as prescribed Follow your dietary instruction Follow activity as directed Keep your appointments as scheduled Take your immunizations and boosters as scheduled If your symptoms worsen call your PCP, if no PCP go to Urgent Care Center or Emergency Room Smoking is Dangerous to Your Health. Avoid second hand smoke Call the 24-hour hour crisis hotline for domestic abuse at Delon Perez Feb 20, 2017 14:38
--- NOTE | 2017-02-20 15:13 | HHI.FF ---
Face to Face Verification Diagnosis: (1) Respiratory failure with hypoxia and hypercapnia Home Health Nursing Order: Oxygen administration education Nursing assessment with vital signs I have seen patient Meek Main on 02/20/17. My clinical findings support the need for the requested home health care services because: Ltd mobility - disease progression Patient has SOB Deconditioned w/ increased weakness Limited ability to care for self I certify that my clinical findings support that this patient is homebound because: Hx COPD- exertion dyspnea/weakness Unsteady gait/balance Unsafe to leave home unassisted Unable to use public transportation Bethel Apodaca MD Feb 20, 2017 15:13
[2017-02-20] MEDS: AZITHROMYCIN INJ 500 MG in SODIUM CHLOR 0.9% 250 ML INJ 250 ML IV SCH (16:34)
[2017-02-20] MEDS: ENOXAPARIN SODIUM 40 MG/0.4 ML SYRINGE SQ SCH (16:35)
--- NOTE | 2017-02-20 18:29 | HHI.PR ---
Subjective Remarks 71 YOWM with COPD, Hypercapnoic RF Weaned to [place] cough congestion Breathing much better Daughter at BS Objective Vital Signs Vital Signs Date Time Temp Pulse Resp B/P (MAP) Pulse Ox O2 Delivery O2 Flow Rate FiO2 02/20/17 16:00 76 27 147/74 (98) 96 02/20/17 16:00 76 02/20/17 15:00 80 02/20/17 14:00 80 25 100 02/20/17 14:00 80 25 100 02/20/17 13:00 84 34 91 02/20/17 13:00 84 34 91 02/20/17 12:00 84 34 147/74 (98) 91 02/20/17 10:08 2.00 02/20/17 10:00 98.3 82 32 165/75 (105) 91 02/20/17 08:30 92 Nasal Cannula 1.00 02/20/17 08:00 78 02/20/17 07:20 96 Nasal Cannula 1.00 02/20/17 07:00 75 02/20/17 04:00 97.8 80 28 155/73 (100) 93 02/20/17 00:00 98.0 83 28 148/66 (93) 92 02/19/17 23:41 79 02/19/17 20:00 99.0 84 29 139/69 (92) 94 02/19/17 19:15 93 Nasal Cannula 1.00 02/19/17 19:00 90 Nasal Cannula 1.00 02/19/17 19:00 76 27 125/61 (82) 94 I/O 02/19/17 02/19/17 02/19/17 02/20/17 02/20/17 02/20/17 06:59 14:59 22:59 06:59 14:59 22:59 Intake Total 1181 ml 1272 ml 593 ml Output Total 400 ml 1 ml Balance 781 ml 1271 ml 593 ml Intake IV Total 1181 ml 1272 ml 593 ml Output Urine Total 400 ml Stool Total 1 ml # Voids 4 3 # Bowel Movements 1 Result Diagram: 02/18/1742102/18/17421 Objective Remarks GENERAL: Thin built male, mild sob SKIN: Warm and dry. HEAD: Normocephalic. EYES: No scleral icterus. No injection or drainage. NECK: Supple, trachea midline. No JVD or lymphadenopathy. CARDIOVASCULAR: Regular rate and rhythm without murmurs, gallops, or rubs. RESPIRATORY: Breath sounds equal bilaterally. No accessory muscle use. GASTROINTESTINAL: Abdomen soft, non-tender, nondistended. MUSCULOSKELETAL: No cyanosis, or edema. BACK: Nontender without obvious deformity. No CVA tenderness. A/P Assessment and Plan Hypecapnoic RF resolved COPD exac Bronchitis Bronchiectesis Ch appearing infilt PLAN: PO steroids cont Abx Aerosol nebs DC plans for home DW pt and daughter Will FU in office Sukumar Hart MD Feb 20, 2017 18:29
== END 2017-02-20 18:45 | disposition home health service (06) | DRG 190 ==
LOC: PHED 11:58 → PHEDA 15:26 → PHICU 17:20
PROVIDERS: ADMIT Hospitalist; ATTEND Hospitalist
PROC: 5A09357 Assistance with Respiratory Ventilation, Less than 24 Consecutive Hours, Continuous Positive Airway Pressure (ICD-10-PCS; principal; 2017-02-17)
DX: J47.0 Bronchiectasis with acute lower respiratory infection (principal); J96.01 Acute respiratory failure with hypoxia; J96.02 Acute respiratory failure with hypercapnia; J18.9 Pneumonia, unspecified organism; J47.1 Bronchiectasis with (acute) exacerbation; H91.90 Unspecified hearing loss, unspecified ear; F17.210 Nicotine dependence, cigarettes, uncomplicated
CPT/HCPCS: 36600; 71010; 71275; 80053; 82550; 82805; 82948; 83735; 84484; 85025; 85610; 85730; 87040; 87449; 87641; 87804; 93005; 94002; 94003; 94620; 94640; 94664; 94667; 94668; 96374; J0456; J0696; J1650; J1815; J2543; J2930; J7030; J7050; J7608; Q9967